=== PATIENT | male | born 1965 | race Caucasian/White ===

== ENCOUNTER → 2023-07-20 18:02 | Outpatient (REF) | payer BC, SELFPAY | LOC: REG 18:02 | PROVIDERS: ATTENDING PHYSICIAN Internal Medicine | DX: R05.3 Chronic cough (principal) | CPT/HCPCS: 71046 ==

== ENCOUNTER → 2023-10-01 13:37 | Outpatient (REF) | payer BC, SELFPAY | LOC: RAD 13:37 | PROVIDERS: ATTENDING PHYSICIAN Internal Medicine | DX: R05.3 Chronic cough (principal) | CPT/HCPCS: 71250 ==

== ENCOUNTER → 2024-02-08 06:58 | Outpatient (REF) | payer BC, SELFPAY | LOC: HWRAD 06:58 | PROVIDERS: ATTENDING PHYSICIAN Family Medicine | DX: E04.1 Nontoxic single thyroid nodule (principal) | CPT/HCPCS: 76536 ==

== ENCOUNTER → 2024-11-16 08:06 | Outpatient (REF) | payer BC, SELFPAY | LOC: HWRAD 08:06 | PROVIDERS: ATTENDING PHYSICIAN Internal Medicine Pulmonary Disease; FAMILY PHYSICIAN Family Medicine | DX: J33.9 Nasal polyp, unspecified (principal); J32.0 Chronic maxillary sinusitis | CPT/HCPCS: 70486 ==